=== PATIENT | female | born 1945 | race Caucasian/White ===

== ENCOUNTER 2020-05-19 10:56 | Day surgery (SDC) | payer OTHER ==
[~2020-05-19] VITALS: Ht 160 cm; Wt 47.2 kg
[2020-05-19 11:20] VITALS: BP 132/56
[2020-05-19 17:50] VITALS: BP 146/68
[2020-05-19 18:05] VITALS: BP 135/59
[2020-05-19 18:25] VITALS: BP 135/59
[2020-05-19 18:45] VITALS: BP 153/54
[2020-05-19 21:03] VITALS: BP 119/49
[2020-05-20 06:17] VITALS: BP 97/47
[2020-05-20 09:03] VITALS: BP 97/47
== END 2020-05-20 10:26 | disposition home or self-care (01) ==
LOC: DS 10:56 → MU 10:56 → DS 13:00 → OR 13:00 → MU 18:29 → DS 05-20 10:26
PROVIDERS: ATTEND Internal Medicine Cardiovascular Disease
DX: I25.10 Atherosclerotic heart disease of native coronary artery without angina pectoris (principal); I35.0 Nonrheumatic aortic (valve) stenosis; Z79.899 Other long term (current) drug therapy; Z20.828 Contact with and (suspected) exposure to other viral communicable diseases
CPT/HCPCS: CLHCL; 36600; 76937; C1751; C1769; C1894; G0378; J2001; J2250; J3010; J3490; J7040; J7060; Q9967; U0003